=== PATIENT | female | born 2000 | race Caucasian/White ===

== ENCOUNTER 2020-05-27 20:42 | Emergency (ER) | payer MEDICAID, OTHER ==
[~2020-05-27] VITALS: Ht 167.6 cm; Wt 70.5 kg
[2020-05-27 21:54] LABS: BASOPHILS % (AUTO) 0.3 % (0-1); EOSINOPHILS # (AUTO) 0.2 X10'3 (0-0.9); EOSINOPHILS % (AUTO) 2.6 % (0-6); HEMATOCRIT 39.1 % (35.0-45.0); HEMOGLOBIN 13.1 g/dl (12.0-16.0); MEAN CORPUSCULAR HEMOGLOBIN 31.5 PG (27.0-31.0); MEAN CORPUSCULAR HGB CONC 33.6 g/dL (33.0-36.5); MEAN CORPUSCULAR VOLUME 93.9 FL (78-98); MEAN PLATELET VOLUME 7.6 FL (7.4-10.4); MONOCYTES # (AUTO) 0.7 X10'3 (0-0.9); NEUTROPHILS # (AUTO) 5.7 X10'3 (1.8-7.7); NEUTROPHILS % (AUTO) 59.1 % (42-75); PLATELET COUNT 351 X10'3 (140-440); RED BLOOD COUNT 4.16 X10'6 (4.20-5.60); RED CELL DISTRIBUTION WIDTH 12.9 % (11.5-14.5); WHITE BLOOD COUNT 9.7 X10'3 (4.5-11.0)
[2020-05-27 21:57] LABS: ALANINE AMINOTRANSFERASE 22 U/L (12-78); ALBUMIN 3.9 G/DL (3.4-5.0); ALBUMIN/GLOBULIN RATIO 1.1 (1.1-1.5); ALKALINE PHOSPHATASE 93 IU/L (46-116); ANION GAP 8 (8-16); ASPARTATE AMINO TRANSFERASE 16 U/L (10-37); BILIRUBIN,TOTAL 0.2 MG/DL (0.1-1.0); BLOOD UREA NITROGEN 6 MG/DL (7-18); BUN/CREATININE RATIO 8.6 (6.6-38.0); CALCIUM 8.8 MG/DL (8.5-10.1); CHLORIDE 104 MMOL/L (99-107); GLUCOSE 101 MG/DL (70-104); POTASSIUM 3.3 MMOL/L (3.5-5.1); SODIUM 139 MMOL/L (135-145); TOTAL CARBON DIOXIDE 27.4 MMOL/L (24-32); TOTAL PROTEIN 7.4 G/DL (6.4-8.2); eGFR > 90 ML/MIN
[2020-05-27 22:10] LABS: ACETAMINOPHEN < 2.0 UG/ML (10-30)
[2020-05-27 22:12] LABS: ETHANOL < 0.010 GM/DL (0.0-0.010)
--- NOTE | 2020-05-27 22:14 | NUR ---
CALLED [facility] AND WITH PTS LEVELS LESS THAN 2.00 AT 2 HRS THERE NEEDS TO BE A REDRAW AT 2300, WHICH WILL BE THE 4HR JOHN FROM TIME OF INGESTION.
[2020-05-27 22:16] LABS: URINE HCG NEGATIVE (NEG)
[2020-05-27 22:17] LABS: CLARITY,URINE CLEAR (Clear); COLOR,URINE YELLOW (Yellow); GLUCOSE, URINE NEGATIVE (Neg); KETONES,URINE NEGATIVE (Neg); LEUKOCYTE ESTERASE ,URINE NEGATIVE (Neg); NITRITES, URINE NEGATIVE (Neg); OCCULT BLOOD,URINE NEGATIVE (Neg); PH,URINE 6.5 (4.8-8.0); PROTEIN,URINE NEGATIVE (Neg); UROBILINOGEN,URINE 0.2 E.U/dL (0.2-1.0)
[2020-05-27 22:19] LABS: UA COLLECTION TYPE CLN CATCH MIDSTREAM
[2020-05-27 22:31] LABS: URINE AMPHETAMINE SCREEN NEGATIVE (Neg); URINE BARBITUATE SCREEN NEGATIVE (Neg); URINE BENZODIAZEPINES SCREEN NEGATIVE (Neg); URINE CANNABINOID SCREEN NEGATIVE (Neg); URINE COCAINE SCREEN NEGATIVE (Neg); URINE METHADONE SCREEN NEGATIVE (Neg); URINE OPIATE SCREEN NEGATIVE (Neg); URINE PHENCYCLIDINE SCREEN NEGATIVE (Neg)
[2020-05-27 23:15] LABS: BASOPHILS % (AUTO) 0.4 % (0-1); EOSINOPHILS # (AUTO) 0.3 X10'3 (0-0.9); EOSINOPHILS % (AUTO) 2.8 % (0-6); HEMATOCRIT 38.6 % (35.0-45.0); HEMOGLOBIN 12.9 g/dl (12.0-16.0); LYMPHOCYTES % (AUTO) 28.7 % (21-51); MEAN CORPUSCULAR HEMOGLOBIN 31.2 PG (27.0-31.0); MEAN CORPUSCULAR HGB CONC 33.4 g/dL (33.0-36.5); MEAN CORPUSCULAR VOLUME 93.6 FL (78-98); MEAN PLATELET VOLUME 7.4 FL (7.4-10.4); MONOCYTES # (AUTO) 0.8 X10'3 (0-0.9); MONOCYTES % (AUTO) 7.6 % (2-12); NEUTROPHILS # (AUTO) 6.4 X10'3 (1.8-7.7); NEUTROPHILS % (AUTO) 60.5 % (42-75); PLATELET COUNT 351 X10'3 (140-440); RED BLOOD COUNT 4.13 X10'6 (4.20-5.60); WHITE BLOOD COUNT 10.6 X10'3 (4.5-11.0)
[2020-05-27 23:30] LABS: ACETAMINOPHEN < 2.0 UG/ML (10-30)
--- NOTE | 2020-05-27 23:56 | NUR ---
CALLED [facility] TO UPDATE ON 4 HR LABS AND WITH THE LEVELS STAYING THE SAME THERE IS NO OTHER INTERVENTIONS NEEDED. AN PT BEING ASYMPTOMATIC SHE DOES NOT NEED ANY MORE FOLLOW UP LABS
--- NOTE | 2020-05-28 02:11 | NUR ---
Pt is in bed sleeping on her right side with visible respirations. She is not showing signs of pain or distress and is in direct line of sight of the nursing station.
--- NOTE | 2020-05-28 03:21 | NUR ---
Pt is resting comfortably at this time with visible respirations and no sign of pain or distress. She is in direct line of sight of the nursing station.
[2020-05-28] MEDS ORDERED: NO HOME MEDS (04:37)
--- NOTE | 2020-05-28 04:38 | NUR ---
Pt easily arousable and cooperative to having her AM vital signs taken. She denies pain or discomfort. Given water at this time. She denies having to use the restroom. She remains in sight of the nursing station.
--- NOTE | 2020-05-28 05:31 | NUR ---
Pt is resting in bed at this time with visible respirations and no sign of pain or distress. Pt is in direct line of sight of the nursing station.
--- NOTE | 2020-05-28 08:40 | NUR ---
boyfriennoble cruz called to see how pt is doing. took his phone number and will check with pt. anthony number [phone]
--- NOTE | 2020-05-28 13:10 | NUR ---
SITTING UP EATING LUNCH.
--- NOTE | 2020-05-28 13:16 | NUR ---
ON THE PHONE WITH BOYFRIEND.
--- NOTE | 2020-05-28 14:00 | NUR ---
SLEEPING ON RIGHT SIDE
--- NOTE | 2020-05-28 15:00 | NUR ---
SITTING UP IN BED TALKING ON THE PHONE.
--- NOTE | 2020-05-28 16:00 | NUR ---
SLEEPING ON BACK
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
--- NOTE | 2020-05-28 17:28 | NUR ---
SPOKE WITH MARTHA FROM [facility], GAVE HIM AN UPDATE ABOUT THE PATIENT. THEY ARE LOOKING AT ACCEPTING THE PATIENT.
--- NOTE | 2020-05-28 17:47 | NUR ---
[facility] CALLED REGARDING [facility] HAS ACCEPTED THE PATIENT AT 1729, WITH A SINGEING TORCH OPERATOR TIME OF 2029.
--- NOTE | 2020-05-28 18:02 | NUR ---
PATIENT NOT TEARFUL, READING A MAGAZINE SITTING UP IN BED.
--- NOTE | 2020-05-29 00:26 | NUR ---
Patient sleeps quietly on his left side.
[2020-05-29 00:48] VITALS: BP 112/78
== END 2020-05-29 00:53 ==
LOC: ER 20:43
DX: R45.851 Suicidal ideations (principal); R79.1 Abnormal coagulation profile
CPT/HCPCS: 36415; 80053; 80305; 80320; 80329; 81003; 81025; 84443; 85025; 99285

== ENCOUNTER 2020-08-03 20:55 | Inpatient (IN) | payer BC ==
[~2020-08-03] VITALS: Ht 167.6 cm; Wt 74.4 kg
[~2020-08-03 20:55] MED LIST: NO HOME MEDS
[2020-08-03 22:00] VITALS: BP 116/61
--- NOTE | 2020-08-03 23:05 | NUR ---
Pt admitted to unit on 08/03/20 at 2130, 2 RN skin check completed, showered was offered but pt declined. 5150 advisement completed, belongings inventoried, pt calm and cooperative during 1:1 assessment. Pt came in for 5150 DTS/Suicidal after an argument with boyfriend, pt took 25-30 tablets of hydroxyzine 25 mg, at least 24 tablets of 500mg of Tylenol, approximately 20 mg of naproxen, pt then densely regretted it and called EMS.
--- NOTE | 2020-08-03 23:54 | NUR ---
Patients christi is at [facility].
[2020-08-04] MEDS ORDERED: loperamide 2mg capsule PO PRN (00:50)
[2020-08-04] MEDS ORDERED: magnesium hydroxide 30ml (MOM) UD suspension PO PRN (00:50)
[2020-08-04] MEDS ORDERED: acetaminophen 325mg tablet PO PRN ×2 (00:50)
[2020-08-04] MEDS ORDERED: mag hydrox/Alum hydrox/simeth 30ml oral suspension PO PRN (00:50)
[2020-08-04 07:43] VITALS: BP 106/64
[2020-08-04] MEDS: LORazepam 1 MG tablet PO PRN ×2 (09:24→21:14)
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
[2020-08-04 20:00] VITALS: BP 123/70
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
[2020-08-05 07:52] VITALS: BP 106/61
[2020-08-05 09:38] LABS: HEMOGLOBIN A1C 5.5 % (4.5-6.2)
[2020-08-05 09:42] LABS: CHOL/HDL RATIO 3.3 (0.00-4.99); CHOLESTEROL 154 MG/DL (0-200); HDL CHOLESTEROL 46 MG/DL (35-60); LDL CHOLESTEROL 98 MG/DL (50-100); TRIGLYCERIDES 54 MG/DL (20-135)
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
[2020-08-05] MEDS ORDERED: buPROPion SR 150mg tablet PO ONE (13:55)
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
[2020-08-05] MEDS: triamcinolone acet 0.1% cream 15gm TP SCH (18:00)
[2020-08-05 19:00] VITALS: BP 93/60
[2020-08-05] MEDS: buPROPion SR 150mg tablet PO SCH (20:24)
[2020-08-05] MEDS: LORazepam 1 MG tablet PO PRN (20:35)
--- NOTE | 2020-08-06 03:08 | NUR ---
Nursing Progress Note Asim: Legal hold: 5150 Expires 08/07 @ 2130 Client on involuntary status for DTS. Report received from nurse with use of SBAR: PATRICIA Kaiser. Why are they here: Patient came in for 5150 DTS and suicidal after an argument with boyfriend. Patient took 25-30 tablets of hydroxyzine 25 mg and at least 24 tablets of 500mg Tylenol, approximately 20 mg of naproxen, patient then densely regretted it and called EMS. . Assessment What has happened this shift: Received patient lying in bed at change of shift. Pt calm and cooperative for 1:1 assessment, questioned her lab woek results wondering if we vivian any Vitamin D levels, I let her know that we did not. Pt took all meds and requested ativan. Pt in bed after meds were given. S/I, H/I: Denies SI/HI A/VH: Denies Sleep: ADL's: Independent Group attendance: No groups today Were meds taken: Yes; started wellbutrin Any med S/E: None observed or reported. Mental Status Exam Appearance: Neat, clean, wearing green unit scrubs Eye contact: Good Behavior: Cooperative, tearful. Isolated to room Speech: Clear, normal rate/rhythm Mood: Depressed Affect: Congruent with mood Thought process: Linear Thought Content: About aftercare and relationship with BF Cognition: A&Ox4 Insight: Poor Judgment: Poor Interventions PRN's used: ativan Therapeutic interventions: Maintained a safe and supportive environment, provided clear and simple instructions, encouraged independent performance of ADLs and participation on the unit, monitored behavior and need for intervention, provided active listening and positive encouragement, and maintained Q 15min safety checks. Restraints/seclusion/emergency medication: N/A Justification of Continued Inpatient Treatment: Requires interruption of current crisis, medication adjustments, and a safe and supportive environment to prevent readmission.
[2020-08-06] MEDS: triamcinolone acet 0.1% cream 15gm TP SCH (08:27)
[2020-08-06] MEDS: buPROPion SR 150mg tablet PO SCH (08:27)
[2020-08-06 08:53] VITALS: BP 114/69
[2020-08-06] MEDS ORDERED: BUPR-72 PO (13:36)
--- NOTE | 2020-08-06 16:28 | NUR ---
Discharge Note Legal hold: 5150 Expires 08/07 @ 2130 Client on involuntary status for DTS. Report received from nurse with use of SBAR: PATRICIA Malcolm. Why are they here: Patient came in for 5150 DTS and suicidal after an argument with boyfriend. Patient took 25-30 tablets of hydroxyzine 25 mg and at least 24 tablets of 500mg Tylenol, approximately 20 mg of naproxen, patient then densely regretted it and called EMS. Assessment What has happened this shift: Pt awoke and cooperative with vitals and attended breakfast and lunch in the group room. 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 Pt brightening appropriately during conversation and is goal oriented. Pt states she feels some depression (/) "it never goes away" and anxiety "but it's about getting stuff for my job done. I really want to start working on it." She denies SI. Pt was concerned about receiving her discharge medications in time "I don't want there to be a delay due to Covid or something." She states that she will stay with her mother for the first couple days then to a room she is renting. Discussed setting boundaries for her safety and reviewed discharge work extensively, particularly crisis resources. Pt verbalized understanding the places she can call for help if she feels her symptoms coming back. She plans to stay with her mother for the first few days out of the hospitalfor additional support and looks forward to going back to work. Belongings and medications given to pt, prescription sent to pt preferred pharmacy an pt given night time dose of Wellbutrin since the pharmacy si closed for . Pt escorted to main lobby to be picked up by her mother at 1610 by Taykey. S/I, H/I: Denies SI/HI A/VH: Denies Sleep: Slept 7.5 hours, Napped, conversed with roommate ADL's: Independent Group attendance: No groups today Were meds taken: Yes Any med S/E: None observed nor reported Mental Status Exam Appearance: Neat, clean, wearing green unit scrub top and personal pants Eye contact: Good Behavior: Cooperative, watching TV, engaging with peers Speech: Clear, normal rate/rhythm Mood: A little anxious about what i need to do for my job but otherwise I feel okay, Pt presents as mildly restless Affect: Bright Thought process: Linear Thought Content: her to do list relating to her job and getting a primary and therapist, keeping her ex out of her life, her grandpa and his support Cognition: A&Ox4 Insight: Fair to Good Judgment: Fair to Good Interventions PRN's used: None Therapeutic interventions: Maintained a safe and supportive environment, provided clear and simple instructions, encouraged independent performance of ADLs and participation on the unit, monitored behavior and need for intervention, provided active listening and positive encouragement, and maintained Q 15min safety checks. Restraints/seclusion/emergency medication: N/A Justification of Continued Inpatient Treatment: LORI Michel discharged pt today as she is no longer endorsing SI.
== END 2020-08-06 15:00 | disposition home or self-care (01) | DRG 881 ==
LOC: ADULT MH 21:31
PROVIDERS: ADMIT Psychiatry & Neurology Psychiatry; ATTEND Psychiatry & Neurology Psychiatry
DX: F32.9 Major depressive disorder, single episode, unspecified (principal); T39.1X2A Poisoning by 4-Aminophenol derivatives, intentional self-harm, initial encounter; F17.200 Nicotine dependence, unspecified, uncomplicated; Z56.0 Unemployment, unspecified; Z63.8 Other specified problems related to primary support group
CPT/HCPCS: 36415; 80061; 83036; 87081

== ENCOUNTER 2024-06-06 08:41 | Outpatient (CLI) | payer OTHER ==
[~2024-06-06 08:41] MED LIST changes: +BUPR-72 PO
== END 2024-06-06 23:59 | disposition home or self-care (01) ==
LOC: RAD 08:41
PROVIDERS: ATTEND Chiropractor
DX: M84.30XA Stress fracture, unspecified site, initial encounter for fracture (principal)
CPT/HCPCS: 73552; 73590